=== PATIENT | male | born 1990 | race African-American/Black ===

== ENCOUNTER 2021-02-12 16:52 | Emergency (ER) | payer OTHER, SELFPAY ==
[2021-02-12 17:00] VITALS: BP 166/115; PULSE 76; RESP 16; TEMP 37.2; O2SAT 100
[2021-02-12 17:11] VITALS: BP 166/115; PULSE 76; RESP 16; TEMP 37.2; O2SAT 100
--- NOTE | 2021-02-12 17:27 | ED.MALEGU ---
HPI - Male Genitourinary General Chief complaint: Urogenital-Male Stated complaint: STD Exposure Source: patient Mode of arrival: ambulatory Limitations: no limitations History of Present Illness HPI Narrative: 30-year-old male presented for complaint of urethral discharge first noticed this week. He endorses new sexual partner with unprotected sexual intercourse. He denies hematuria, dysuria, flank pain, fever or chills. Related Data Home Medications Medication Instructions Recorded Confirmed No Home Medications 02/12/21 02/12/21 Allergies Allergy/AdvReac Type Severity Reaction Status Date / Time No Known Allergies Allergy Verified 02/12/21 17:10 Review of Systems Review of Systems: CONSTITUTIONAL: Denies body aches, fever, chills, or sweats. CARDIOVASCULAR: Denies chest pain, palpitations, or edema. RESPIRATORY: Denies cough or dyspnea. GASTROINTESTINAL: Denies abdominal pain, nausea, vomiting, or diarrhea. GENITOURINARY: Reports urethral discharge, denies hematuria, dysuria, flank pain SKIN: Denies rash, itching, or wounds. MUSCULOSKELETAL: Denies back pain or myalgia. PMFSH Comments At time of signature, I have reviewed and agree with nursing past medical, surgical, social and family history unless otherwise noted. Please see nursing chart for further information. There is no relevant family history pertinent to the presenting complaint Exam Narrative: GENERAL: Well-appearing and in no acute distress. HEAD: Normocephalic EYES: EOMI. No redness or drainage. ENT: Mucous membranes pink and moist. NECK: Normal AROM. Supple. CHEST: No respiratory distress. Clear to auscultation. HEART: Regular rate and rhythm. ABDOMEN: Soft, nontender, nondistended, normal active bowel sounds. No CVA tenderness MUSCULOSKELETAL: No bony tenderness. SKIN: Warm, dry, no rash. NEURO: No focal deficits. Alert and oriented x3. Gait steady. PSYCH: Normal affect. No signs of depression or anxiety. Course Course Emergency Course: Patient is aware of possible sti diagnosis, understands and agrees to treatment plan. Elects to wait for results, no treatment today. Anticipatory guidance given. Patient agrees to follow-up as directed and is aware of reasons to seek care at the emergency department. Portions of this record may have been created with voice recognition software Level of Care: Express Care Visit Vital Signs Vital signs: Vital Signs Temperature 99 F 01/07/22 17:00 Pulse Rate 76 02/12/21 17:00 Respiratory Rate 16 02/12/21 17:00 Blood Pressure 166/115 H 02/12/21 17:00 Pulse Oximetry 100 02/12/21 17:00 Temperature 99 F 02/12/21 17:11 Pulse Rate 76 02/12/21 17:11 Respiratory Rate 16 02/12/21 17:11 Blood Pressure 166/115 H 02/12/21 17:11 Pulse Oximetry 100 02/12/21 17:11 Reviewed MDM - Male Genitourinary MDM Narrative Medical decision making narrative: Pt elects no treatment for possible STI. Patient is appropriate for outpatient treatment and follow-up. Lab Data Labs: Lab Results 02/12/21 Range/Units 17:02 C.trachomatis RNA (TMA) Pending N.gonorrhoeae RNA (TMA) Pending T. vaginalis Amp RNA Pending Discharge Plan Discharge Clinical Impression: Discharge from urethra in male, History of hypertension Patient Disposition: Home, Self-Care Condition: Stable Instructions: Antibiotic Form, Sexually Transmitted Diseases (ED), Hypertension (ED) Additional Instructions: Your blood pressure was elevated above 120/80 today at Urgent Care. This puts you above the threshold for follow up. Please schedule a followup visit with your personal physician as soon as possible, for further evaluation and treatment. You will be contacted with the results of the urine testing completed today, and you may need to return for antibiotic treatment. Meanwhile practice safe sex. Prescriptions: No Action No Home Medications RF: 0 Follo
== END 2021-02-12 17:56 | disposition home or self-care (01) ==
PROVIDERS: Emergency Provider Nurse Practitioner Family; PCP Family Medicine
DX: R36.9 Urethral discharge, unspecified (principal); I10 Essential (primary) hypertension
CPT/HCPCS: 87491; 87591; 87661; 99213; G0463

== ENCOUNTER 2023-01-07 11:54 | Emergency (ER) | payer MEDICAID, SELFPAY ==
[2023-01-07 12:05] VITALS: BP 162/121; PULSE 82; RESP 16; TEMP 36.8; O2SAT 98
[2023-01-07 12:09] VITALS: BP 162/121; PULSE 82; RESP 16; TEMP 36.8; O2SAT 98
[2023-01-07] MEDS: cefTRIAXone 500 MG VIAL IM (13:28)
--- NOTE | 2023-01-07 13:53 | ED.GENADULT ---
HPI - General Adult General Chief complaint: Urogenital-Male Stated complaint: Urinary Problems Source: patient Mode of arrival: ambulatory Limitations: no limitations History of Present Illness HPI narrative: Patient presents requesting STI evaluation. He indicates he had sex outside of his primary relationship with a different partner 4 days ago. The following day he noticed decreased force of urinary stream and what appeared to be webs in his urethral orifice. He noticed some stains in his underwear. Denies any dysuria per se. He does not use condoms with either his primary partner or the second partner with whom he had sexual intercourse earlier this week. His primary partner is also here being evaluated for vaginal irritation and swelling. Related Data Allergies Allergy/AdvReac Type Severity Reaction Status Date / Time No Known Allergies Allergy Verified 01/07/23 12:11 Review of Systems Review of Systems: CONSTITUTIONAL: Denies fever, chills, or sweats. EYES: Denies visual changes, redness, or discharge. ENT: Denies rhinorrhea, congestion, sore throat, or otalgia. CARDIOVASCULAR: Denies chest pain, palpitations, or edema. RESPIRATORY: Denies cough or dyspnea. GASTROINTESTINAL: Denies abdominal pain, nausea, vomiting, or diarrhea. GENITOURINARY: Reports decreased force of urinary stream with what appear to be webs in his urethral. Reports stains in his underwear. Denies dysuria or hematuria. SKIN: Denies rash or itching. MUSCULOSKELETAL: Denies back pain, joint pain, or myalgia. NEUROLOGIC: Denies headache, numbness, dizziness, or weakness. PSYCHIATRIC: Denies anxiety or depression. [facility] Past Medical History Medical History No pertinent past medical history Surgical History Surgical History No pertinent past surgical history Family History Family History (Updated 01/07/23 @ 13:59 by LEIA Cotter, ) Mother Family history non-contributory Social History Social History Gender identity (if verbalized by the patient): Male Sexual Orientation (if Verbalized by the Patient): Straight or Heterosexual Spiritual care concerns: No Exam Narrative: GENERAL: Well-appearing, well-nourished, and in no acute distress. HEAD: Normocephalic, atraumatic. EYES: PERRLA and EOMI. ENT: Nares clear, no rhinorrhea or epistaxis. Mucous membranes moist. Oropharynx without tonsillar hypertrophy exudate or other lesions. Bilateral TMs pearly snow nonbulging NECK: Supple. No adenopathy or masses. No carotid bruits or JVD CHEST: Clear to auscultation. No respiratory distress. No wheezes rales or rhonchi HEART: Regular rate and rhythm. No murmur heard. Normal peripheral pulses. ABDOMEN: Soft, nontender, nondistended, normal active bowel sounds. GENITAL: No external genital lesions. No urethral discharge. EXTREMITIES: Normal range of motion. No edema. SKIN: Warm, dry, no rash. NEURO: No focal deficits. Alert and oriented x3. PSYCH: Normal mood and affect. Course Course Emergency Course: This is a 32-year-old male who presented for STI evaluation. Through shared decision making, opted to proceed with treatment for gonorrhea, chlamydia and trich. Advised he should have comprehensive STI evaluation and should abstain from sexual intercourse until one week after he and partner(s) complete their treatment course. Follow up with primary provider. Go to the ER for worsening symptoms. Pt in agreement with plan of care. Level of Care: Express Care Visit Vital Signs Vital signs: Vital Signs Temperature 36.8 C 01/07/23 12:05 Pulse Rate 82 01/07/23 12:05 Respiratory Rate 16 01/07/23 12:05 Blood Pressure 162/121 H 01/07/23 12:05 Pulse Oximetry 98 01/07/23 12:05 Oxygen Delivery Room Air 01/07/23 12:05
[2023-01-07 15:27] LABS: Trichomonas Vag PCR NOT DETECTED (NOT DETECTE)
[2023-01-07 15:49] LABS: Chlamydia trachomatis NOT DETECTED (NOT DETECTE); Neisseria gonorrhoeae PCR NOT DETECTED (NOT DETECTE)
[2023-01-07 15:52] LABS: Chlamydia trachomatis NOT DETECTED (NOT DETECTE); Neisseria gonorrhoeae PCR NOT DETECTED (NOT DETECTE)
== END 2023-01-07 13:50 | disposition home or self-care (01) ==
PROVIDERS: Emergency Provider Nurse Practitioner; PCP Family Medicine
DX: R39.12 Poor urinary stream (principal); R36.9 Urethral discharge, unspecified; Z11.3 Encounter for screening for infections with a predominantly sexual mode of transmission
CPT/HCPCS: 81003; 87491; 87591; 87661; 96372; 99213; G0463; J0696